=== PATIENT | male | born 1965 | race Caucasian/White ===

== ENCOUNTER → 2017-10-04 | Outpatient (CLI) | payer BC | LOC: LAB 11:45 | DX: M25.421 Effusion, right elbow (principal); M70.31 Other bursitis of elbow, right elbow ==

== ENCOUNTER → 2020-03-26 | Outpatient (CLI) | payer BC ==
[2020-03-26 11:14] LABS: ALBUMIN 4.1 g/dL (3.5-5.0)
[2020-03-26 11:16] LABS: CALCIUM 8.8 mg/dL (8.3-10.5)
[2020-03-26 11:19] LABS: TOTAL BILIRUBIN 1.1 mg/dL (0.2-1.2)
[2020-03-26 11:43] LABS: EOS % 0.4 % (0.0-4.0); HEMATOCRIT 46.1 % (42.0-52.0); HEMOGLOBIN 15.2 g/dL (13.5-18.0); LYMPH# 2.3 (1.50-4.00); MEAN CELL VOLUME 89 fl (78-100); MEAN CORPUSCULAR HEMOGLOBIN 29 pg (27-31); MEAN CORPUSCULAR HGB CONC 33 g/dL (33-37); MEAN PLATELET VOLUME 8.8 fl (7.4-10.4); MONO # 1.2 (0.20-0.80); NEU # 7.2 (1.40-6.50); PLATELET COUNT 387 K/mm3 (130-400); RED BLOOD COUNT 5.18 M/mm3 (4.20-5.60); RED CELL DISTRIBUTION WIDTH 13.3 % (11.5-14.5); WHITE BLOOD COUNT 10.7 K/mm3 (4.8-10.8)
== END ==
LOC: LAB 10:50
PROVIDERS: Physician Assistant
DX: M19.071 Primary osteoarthritis, right ankle and foot (principal); M10.9 Gout, unspecified

== ENCOUNTER → 2021-10-08 | Outpatient (CLI) | payer BC | LOC: LAB 16:09 | DX: U07.1 COVID-19 (principal) ==

== ENCOUNTER → 2021-12-08 | Outpatient (CLI) | payer BC ==
[2021-12-08 11:22] LABS: BASO # 0.03 K/mm3 (0.02-0.10); EOS # 0.06 K/mm3 (0.04-0.40); EOS % 0.6 % (0.0-4.0); HEMATOCRIT 46.7 % (42.0-52.0); HEMOGLOBIN 15.5 g/dL (13.5-18.0); LYMPH# 2.29 K/mm3 (1.50-4.00); MEAN CELL VOLUME 92 fl (78-100); MEAN CORPUSCULAR HEMOGLOBIN 30 pg (27-31); MEAN CORPUSCULAR HGB CONC 33 g/dL (33-37); MEAN PLATELET VOLUME 8.6 fl (7.4-10.4); MONO # 0.97 K/mm3 (0.20-0.80); NEU # 6.51 K/mm3 (1.40-6.50); PLATELET COUNT 342 K/mm3 (130-400); RED CELL DISTRIBUTION WIDTH 12.5 % (11.5-14.5); WHITE BLOOD COUNT 9.9 K/mm3 (4.8-10.8)
[2021-12-08 11:39] LABS: ALBUMIN 4.1 g/dL (3.5-5.0)
[2021-12-08 11:40] LABS: POTASSIUM 4.4 mmol/L (3.5-5.1)
[2021-12-08 11:41] LABS: CALCIUM 9.4 mg/dL (8.3-10.5)
[2021-12-08 11:42] LABS: TOTAL PROTEIN 7.5 g/dL (6.4-8.3)
[2021-12-08 11:44] LABS: TOTAL BILIRUBIN 0.8 mg/dL (0.2-1.2)
[2021-12-08 11:48] LABS: MAGNESIUM 1.73 mg/dL (1.60-2.60)
[2021-12-08 12:29] LABS: ERYTHROCYTE SEDIMENTATION RATE 20 mm/hr (0-20)
== END ==
LOC: LAB 10:44
PROVIDERS: Nurse Practitioner Family
DX: M17.11 Unilateral primary osteoarthritis, right knee (principal); M79.10 Myalgia, unspecified site; M25.461 Effusion, right knee

== ENCOUNTER → 2022-02-02 | Outpatient (CLI) | payer BC ==
[2022-02-02 09:25] LABS: BASO # 0.03 K/mm3 (0.02-0.10); EOS # 0.04 K/mm3 (0.04-0.40); EOS % 0.3 % (0.0-4.0); HEMATOCRIT 49.3 % (42.0-52.0); HEMOGLOBIN 16.7 g/dL (13.5-18.0); LYMPH# 2.38 K/mm3 (1.50-4.00); MEAN CELL VOLUME 90 fl (78-100); MEAN CORPUSCULAR HEMOGLOBIN 31 pg (27-31); MEAN CORPUSCULAR HGB CONC 34 g/dL (33-37); MEAN PLATELET VOLUME 8.3 fl (7.4-10.4); MONO # 1.33 K/mm3 (0.20-0.80); NEU # 8.33 K/mm3 (1.40-6.50); PLATELET COUNT 403 K/mm3 (130-400); RED BLOOD COUNT 5.47 M/mm3 (4.20-5.60); RED CELL DISTRIBUTION WIDTH 12.6 % (11.5-14.5); WHITE BLOOD COUNT 12.2 K/mm3 (4.8-10.8)
[2022-02-02 10:35] LABS: ERYTHROCYTE SEDIMENTATION RATE 25 mm/hr (0-20)
== END ==
LOC: LAB 08:55
PROVIDERS: Physician Assistant
DX: M25.532 Pain in left wrist (principal)

== ENCOUNTER 2024-05-22 13:30 | Outpatient (RCR) | payer BC | END 2024-06-11 | disposition home or self-care (01) | LOC: OT | DX: M25.532 Pain in left wrist (principal) ==